=== PATIENT | female | born 1980 | race Caucasian/White ===

== ENCOUNTER → 2017-06-11 | Outpatient (CLI) | payer OTHER ==
[~2017-06-11] MED LIST: ACHD5005 PO; BCP; CETI10TA20 PO; CIPR500T4 PO; CPR500T PO; CTLP20T; CYCL-97 PO; CYCL10TA9 PO; DCS100C PO; DESV100T; DESV100T PO; DESV50TA PO; DIAZ10TA PO; DOCU-161 PO; FLVX50T; HC A28.3 PR; HYDR-2890 PO; HYDR-34 PO; HYDR-3714 PO; HYDR118S10 PO; HYDR1TAB PO; HYDR25CA92 PO; IBP600T1 PO; IBP800T PO; LCT30U PO; LD2JL30 EXT; LORA-405 PO; METO-351 PO; METR500T PO; MICRONOR; MINO50CA3; MINO50TA9; NAPR-243 PO; NAPR550T PO; OXYC-12 PO; PRD10T PO; PROP1TAB77 PO; SPIR50TA6; TRAM100T2 PO; TRAM50TA2 PO; TRM50T PO; WRF5T; YAZ
--- NOTE | 2017-06-11 19:06 | Diagnostic Imaging Report ---
TECHNIQUE: Multiplanar, multisequence non contrast-enhanced MRI of the right lower extremity was accomplished. INDICATION: Injury to the right knee while running last night. EXAMINATION: MRI of right knee without contrast, 06/11/2017. COMPARISONS: None. FINDINGS: The extensor mechanism is intact. ACL and PCL also intact. MCL is intact; however, there is some edema medial to the MCL. Mild edema internally within the distal MCL also noted but no discontinuity or retraction appreciated. Proximal MCL appears mildly thickened perhaps due to an old injury, correlate clinically. Lateral collateral ligamentous complex appears intact. There is a small Harrell's cyst. Minimal adjacent fluid is noted likely due to recent rupture or leakage given the history of trauma. There is diffuse soft tissue edema within the posterior aspect of the knee and proximal tibia as well, likely reactive. Edema noted within the anteromedial aspect of the knee subcutaneously also noted and likely reactive as well. There is a small joint effusion. Patellofemoral cartilage is preserved. Cartilage within both the medial and lateral joint compartments moderately thinned, more so medially. Mild edema seen within the medial tibial plateau which could be due to bone contusion. The medial meniscus contains internal high signal posteriorly. This is likely on the basis of myxoid degeneration with a discrete tear not appreciated. Lateral meniscus appears intact. IMPRESSION: 1. Diffuse subcutaneous and some muscular edema about the knee, likely all reactive. 2. Findings along the MCL could be due to a type 2-3 sprain but no discontinuity appreciated. 3. Remaining ligaments and tendons intact. 4. Degenerative findings as noted above with other incidental findings as described. Mild osseous contusion along the proximal medial tibial plateau also suspected. Dictated by: Dictated on workstation # [id number]
== END ==
LOC: RAD 15:58
PROVIDERS: ATTEND Nurse Practitioner Family
DX: S89.91XA Unspecified injury of right lower leg, initial encounter (principal); Y93.02 Activity, running
CPT/HCPCS: 73721

== ENCOUNTER 2017-10-01 13:02 | Outpatient (RCR) | payer OTHER | END 2017-10-01 13:36 | disposition home or self-care (01) | PROVIDERS: ATTEND Orthopaedic Surgery | DX: S83.411A Sprain of medial collateral ligament of right knee, initial encounter (principal); S80.01XA Contusion of right knee, initial encounter; X58.XXXA Exposure to other specified factors, initial encounter; Y93.02 Activity, running ==

== ENCOUNTER → 2018-10-19 | Outpatient (CLI) | payer OTHER ==
--- NOTE | 2018-10-20 18:19 | Diagnostic Imaging Report ---
INDICATION: Screening. At this time there are no current complaints. EXAMINATION: Bilateral digital screening mammogram with CAD. 3D tomographic images were obtained and reviewed. The current study was also evaluated with a Computer Aided Detection (CAD) system. COMPARISON: None. This is the patient's baseline study. FINDINGS: Fibroglandular tissue in both breasts is heterogeneously dense. This does limit the sensitivity of this exam. There is no primary or secondary sign of malignancy noted. IMPRESSION: 1. There is no evidence for malignancy. 2. The patient should have her annual bilateral screening mammogram on schedule in September of 2019. ACR BI-RADS Category 1: Negative. Result letter will be mailed to the patient. Note: At least 10% of breast cancer is not imaged by mammography. Dictated by: Dictated on workstation # [id number]
== END ==
LOC: RAD 09:56
PROVIDERS: ATTEND Obstetrics & Gynecology
DX: Z12.31 Encounter for screening mammogram for malignant neoplasm of breast (principal)
CPT/HCPCS: 77067

== ENCOUNTER 2020-03-01 16:40 | Outpatient (RCR) | payer OTHER | END 2020-03-01 17:00 | disposition home or self-care (01) | PROVIDERS: ATTEND Nurse Practitioner Family | DX: M75.111 Incomplete rotator cuff tear or rupture of right shoulder, not specified as traumatic (principal) | CPT/HCPCS: 97161; G0283 ==

== ENCOUNTER → 2020-03-07 | Outpatient (CLI) | payer OTHER | LOC: LABNPT 05:36 | PROVIDERS: ATTEND Orthopaedic Surgery | DX: Z01.812 Encounter for preprocedural laboratory examination (principal); Z20.828 Contact with and (suspected) exposure to other viral communicable diseases | CPT/HCPCS: 87635 ==

== ENCOUNTER 2020-06-08 16:19 | Outpatient (RCR) | payer OTHER | END 2020-06-08 16:54 | disposition home or self-care (01) | PROVIDERS: ATTEND Orthopaedic Surgery | DX: I10 Essential (primary) hypertension (principal); Z96.611 Presence of right artificial shoulder joint; Z98.890 Other specified postprocedural states ==

== ENCOUNTER 2020-10-11 09:49 | Emergency (ER) | payer OTHER ==
[~2020-10-11] VITALS: Ht 157 cm; Wt 72.5 kg
--- NOTE | 2020-10-11 10:22 | ED Psychosocial ---
General Chief Complaint: Psych/Social Disorder Stated Complaint: PANIC ATTACK Nursing Triage Note: PT PRESENTS TO ED WITH COMPLAINTS OF INCREASED ANXIETY AND PANIC ATTACK STARTING THIS AM. PT REPORTS SHE HAS STRUGGLED WITH INCREASED ANXIETY AND DEPRESSION RECENTLY AND HAD SOME OF HER MEDICATIONS CHANGED BUT IT DIDNT SEEM TO HELP. Source: patient Exam Limitations: no limitations History of Present Illness Date Seen by Provider: Oct 11, 2020 Time Seen by Provider: 10:05 Initial Comments Patient is a 40-year-old female with a long history of depression and anxiety who presents to the emergency department this morning with a chief complaint of a panic attack. Patient states that she woke up at about 630 this morning with onset of symptoms. She is followed with [facility] and has recently tried to additional medications for her anxiety and depression including Rexulti and buspirone. Patient states that she weaned herself over 3 days off the buspirone last week her last dose was on Thursday. She states these 2 medications seem to make her more anxious. Her daughter is present at the bedside and states that she has lost "motivation". She states that her depression has increased in recent days. She does not have a follow-up appointment scheduled with her provider at [facility]. She will call today to get one however. Patient denies any SI or HI. No auditory or visual hallucinations. No recent illnesses. All other review of systems reviewed and negative except as stated above. Timing/Duration: this morning Severity: severe Associated Symptoms: anxiety, impaired concentration Allergies and Home Medications Allergies Coded Allergies: Erythromycin Base (Verified Allergy, Severe, ANAPHYLAXIS, 08/19/13) Home Medications Docusate Sodium 100 Mg Capsule, 100 MG PO DAILY, (Reported) Hydroxyzine Pamoate 25 Mg Capsule, 25 MG PO DAILY PRN for ANXIETY, (Reported) Lorazepam 1 Mg Tablet, 1 MG PO Q8H PRN for ANXIETY Prescribed by: WILL WEBSTER on 01/03/16 1146 Patient Home Medication List Home Medication List Reviewed: Yes Review of Systems Constitutional: see HPI EENTM: no symptoms reported Respiratory: short of breath Cardiovascular: no symptoms reported Gastrointestinal: diarrhea, loss of appetite Genitourinary: no symptoms reported : No Musculoskeletal: no symptoms reported Skin: no symptoms reported Psychiatric/Neurological: Anxiety, Depressed, Emotional Problems All Other Systems Reviewed Negative Unless Noted: Yes Past Uateglp-Xedrxf-Ruoiou Hx Patient Social History Tobacco Use?: No Substance use?: No Pt feels they are or have been: No Immunizations Up To Date Tetanus Booster (TDap): Unknown PED Vaccines UTD: Yes First/Initial COVID19 Vaccinat: 05/31/20 Second COVID19 Vaccination Dean: 07/05/20 COVID19 Vaccine Coal Weigher: ESTHELA Past Medical History Surgery/Hospitalization HX: PMH: PANIC DIORDER, HTN, SX: ABDOMINAL SX, HYST, TONSILECTOMY, C-SEC, R KNEE, R-SHOULDER Appendectomy, Section, Hysterectomy, Oophorectomy Reproductive Disorders: Yes (ENDOMETRIOSIS, pelvic pain) Female Reproductive Disorders: Endometriosis, Ovarian Cyst ATTENDING PSYCHIATRIST History: Hysterectomy Sexually Transmitted Disease: No HIV/AIDS: No Fractures Anxiety Family Medical History Cancer 19 MOTHER (BREAST) Family history: Diabetes mellitus 19 FATHER Family history: Hypertension 19 FATHER No Family History of: Abdominal aortic aneurysm Alcoholism Dementia Family history: Alzheimer's disease Family history: Arthritis Family history: Cardiovascular disease Family history: Gastrointestinal disease Family history: Thyroid disorder Hereditary disease History of - respiratory disease Kidney disease Myocardial infarction Parkinson's disease Prostate cancer Psychotic disorder Seizure disorder Stroke Cancer Physical Exam Vital Signs - First Documented 10/11/20 09:55 Temp 35.6 Pulse 110 Resp 18 B/P (MAP) 141/110 (120) Pulse Ox 98 Capillary Refill : Less Than 3 Seconds Height, Weight, BMI Height: 5'2" Weight: 141lbs. 4.0oz. [id number]; 29.00 BMI Method:Stated General Appearance: WD/WN, moderate distress HEENT: normal ENT inspection Respiratory: lungs clear, normal breath sounds, no respiratory distress, no accessory muscle use Cardiovascular: regular rate, rhythm, tachycardia Gastrointestinal: normal bowel sounds, non tender, soft Extremities: non-tender, normal inspection, no pedal edema, no calf tenderness Neurologic/Psychiatric: alert, normal mood/affect, oriented x 3 Appearance/Memory: appropriate appearance, neat, no memory impairment, denies illness Behavior/Eye Contact: cooperative, good eye contact, normal speech Thoughts/Hallucinations: no apparent hallucination Skin: normal color, warm/dry Progress/Results/Core Measures Results/Orders My Orders Orders - JASS ARTHUR MD Lorazepam Injection (Ativan Injection) (10/11/20 10:30) Medications Given in ED Current Medications Medications Dose Ordered Sig/Gutierrez Route Start Time Stop Time Status Last Admin Dose Admin Lorazepam 1 mg ONCE ONCE IM 10/11/20 10:30 10/11/20 10:31 DC 10/11/20 10:41 1 MG Vital Signs/I&O 10/11/20 09:55 Temp 35.6 Pulse 110 Resp 18 B/P (MAP) 141/110 (120) Pulse Ox 98 Blood Pressure Mean: 120 Progress Progress Note : Time: 11:29 Progress Note Patient reevaluated, much calmer. Anxiety seems to have abated. Patient is encouraged to use her Vistaril at home every 6 hours as needed for anxiety/panic. She is encouraged to follow-up with her provider through [facility]. Patient verbalized understanding and is comfortable with plan of care. All questions have been sought and answered. Patient is stable for discharge. Departure Impression Primary Impression: Anxiety Disposition: 01 HOME, SELF-CARE Condition: Stable Departure-Patient Inst. Decision time for Depature: 10:39 Referrals: CLARE VALLADARES DO (PCP/Family) Primary Care Physician Patient Instructions: Panic Disorder (DC) Add. Discharge Instructions: Please continue your daily medications as prescribed. Please call your provider at [facility] for a follow-up appointment early next week. Return to the emergency room for any new, concerning or emergent symptoms JASS ARTHUR MD Oct 11, 2020 10:22
[2020-10-11] MEDS ORDERED: LORazepam INJ 2 MG/ML (ATIVAN) VIAL IM ONE (10:30)
[2020-10-11 11:43] VITALS: BP 118/91
== END 2020-10-11 11:43 | disposition home or self-care (01) ==
LOC: EDUNIT# 09:49 → ER 09:51
DX: F41.0 Panic disorder [episodic paroxysmal anxiety] (principal); I10 Essential (primary) hypertension; F32.9 Major depressive disorder, single episode, unspecified; Z79.899 Other long term (current) drug therapy
CPT/HCPCS: 99284

== ENCOUNTER 2022-07-23 16:45 | Outpatient (RCR) | payer OTHER | END 2022-07-27 | disposition home or self-care (01) | PROVIDERS: ATTEND Nurse Practitioner | DX: M79.672 Pain in left foot (principal) ==

== ENCOUNTER 2022-07-30 16:28 | Outpatient (RCR) | payer OTHER | END 2022-07-30 17:00 | disposition home or self-care (01) | PROVIDERS: ATTEND Nurse Practitioner | DX: S92.352D Displaced fracture of fifth metatarsal bone, left foot, subsequent encounter for fracture with routine healing (principal); R26.89 Other abnormalities of gait and mobility; I10 Essential (primary) hypertension; X58.XXXD Exposure to other specified factors, subsequent encounter ==